=== PATIENT | female | born 1970 | race Two or more races ===

== ENCOUNTER 2018-05-08 01:32 | Emergency (ER) | payer MEDICAID ==
[2018-05-08 02:10] LABS: URINE BLOOD (Dip) POC 3+ (NEGATIVE); URINE KETONES (Dip) POC 1+ (NEGATIVE); URINE LEUKOCYTE EST (Dip) POC 3+ (NEGATIVE); URINE NITRITE (Dip) POC Positive (NEGATIVE); URINE TOTAL PROTEIN POC 3+ (NEGATIVE)
[2018-05-08 02:10] LABS: URINE PH (Dip) POC 6.5 (5.0-8.5)
== END 2018-05-08 02:55 | disposition home or self-care (01) ==
LOC: FTE 01:32
DX: N30.01 Acute cystitis with hematuria (principal); E11.9 Type 2 diabetes mellitus without complications
CPT/HCPCS: 81003; 81025; 99283

== ENCOUNTER 2018-10-28 13:18 | Emergency (ER) | payer MEDICAID ==
[2018-10-28] MEDS: morphine 4 MG/ML VIAL IV (14:01)
[2018-10-28] MEDS: ONDANSETRON 4 MG INJ IV (14:01)
[2018-10-28] MEDS: SOD CHLORIDE 0.9% 1,000 ML IV (14:02)
[2018-10-28 14:12] LABS: ADD MAN DIFF? NO
[2018-10-28 14:17] LABS: WHITE BLOOD COUNT 15.4 10^3/ul (4.8-10.8)
[2018-10-28 14:17] LABS: BASOPHIL # 0.1 10^3/ul (0.0-0.1); BASOPHILS % 0.5 % (0.0-2.0); EOSINOPHILS % 0.2 % (0.0-7.0); HEMATOCRIT 46.3 % (37.0-47.0); HEMOGLOBIN 15.2 g/dl (12.0-16.0); LYMPHOCYTES # 2.3 10^3/ul (0.8-2.9); LYMPHOCYTES % 15.1 % (15.0-51.0); MEAN CORPUSCULAR HGB CONC 32.8 g/dl (32.0-37.0); MEAN CORPUSCULAR VOLUME 82.1 fl (82.0-101.0); MONOCYTE # 0.2 10^3/ul (0.3-0.9); MONOCYTES % 1.2 % (0.0-11.0); NEUTROPHIL # 12.7 10^3/ul (1.6-7.5); NEUTROPHILS % 82.5 % (39.0-77.0); PLATELET COUNT 382 10^3/UL (140-415); RED BLOOD COUNT 5.64 10^6/ul (4.20-5.40); RED CELL DISTRIBUTION WIDTH 12.9 % (11.5-14.5)
[2018-10-28 14:21] LABS: ADD UMIC YES; UR ASCORBIC ACID NEGATIVE (NEGATIVE); UR BILIRUBIN (Dip) NEGATIVE (NEGATIVE); UR BLOOD (Dip) NEGATIVE (NEGATIVE); UR CLARITY CLEAR (CLEAR); UR COLOR YELLOW (YELLOW); UR GLUCOSE (Dip) 3+ mg/dL (NEGATIVE); UR KETONES (Dip) 2+ mg/dL (NEGATIVE); UR LEUKOCYTE ESTERASE (Dip) NEGATIVE Leu/ul (NEGATIVE); UR NITRITE (Dip) NEGATIVE (NEGATIVE); UR RBC 0 /HPF (0-5); UR SPECIFIC GRAVITY (Dip) 1.038 (1.003-1.030); UR SQUAMOUS EPITHELIAL CELL FEW /HPF (FEW); UR TOTAL PROTEIN (Dip) 2+ mg/dl (NEGATIVE); UR UROBILINOGEN (Dip) NEGATIVE (NEGATIVE); UR WBC 1 /HPF (0-5)
[2018-10-28 14:34] LABS: ALANINE AMINOTRANSFERASE 12 IU/L (13-69); ALBUMIN 4.8 g/dl (3.3-4.9); ALBUMIN/GLOBULIN RATIO 1.17; ALKALINE PHOSPHATASE 140 IU/L (42-121); ANION GAP 22 (5-13); ASPARTATE AMINO TRANSFERASE 23 IU/L (15-46); BILIRUBIN,INDIRECT 0.3 mg/dl (0-1.1); BILIRUBIN,TOTAL 0.3 mg/dl (0.2-1.3); BLOOD UREA NITROGEN 10 mg/dl (7-20); CALCIUM 9.7 mg/dl (8.4-10.2); CARBON DIOXIDE 22 mmol/L (21-31); CHLORIDE 97 mmol/L (97-110); CREATININE 0.41 mg/dl (0.44-1.00); Estimated GFR > 60 mL/min (>60); GLUCOSE 358 mg/dl (70-220); LIPASE 49 U/L (23-300); POTASSIUM 3.9 mmol/L (3.5-5.1); SODIUM 141 mmol/L (135-144); TOTAL PROTEIN 8.9 g/dl (6.1-8.1)
[2018-10-28] MEDS: SOD CHLORIDE 0.9% 100 ML (14:59)
[2018-10-28] MEDS: IOHEXOL 300MG/ML 150 ML BTL (14:59)
[2018-10-28] MEDS: morphine 2 MG INJ IV (15:36)
== END 2018-10-28 17:08 | disposition home or self-care (01) ==
LOC: FTE 13:18
DX: R10.9 Unspecified abdominal pain (principal); R11.10 Vomiting, unspecified; E11.9 Type 2 diabetes mellitus without complications
CPT/HCPCS: 36415; 74177; 80053; 81001; 81025; 83690; 85025; 96361; 96374; 96375; 96376; 99285-25

== ENCOUNTER 2019-01-19 10:51 | Emergency (ER) | payer MEDICAID | END 2019-01-19 12:15 | disposition home or self-care (01) | LOC: FTE 10:51 | DX: R07.81 Pleurodynia (principal); E11.9 Type 2 diabetes mellitus without complications | CPT/HCPCS: 99282; Z7502 ==